=== PATIENT | male | born 1980 | race Caucasian/White ===

== ENCOUNTER → 2017-08-30 | Outpatient (CLI) | payer OTHER ==
[2017-08-30 11:09] LABS: HEMATOCRIT 45.5 % (39.2-51.8); HEMOGLOBIN 15.3 g/dL (13.7-18.0); WHITE BLOOD COUNT 6.3 x10^3/uL (3.4-10)
[2017-08-30 11:20] LABS: BLOOD UREA NITROGEN 14 mg/dL (7-18)
[2017-08-30 11:23] LABS: ASPARTATE AMINO TRANSFERASE 11 U/L (15-37)
== END | disposition home or self-care (01) ==
LOC: RAD 10:53
PROVIDERS: ATTEND Family Medicine
DX: Z00.01 Encounter for general adult medical examination with abnormal findings (principal); N44.8 Other noninflammatory disorders of the testis; M54.2 Cervicalgia; M25.512 Pain in left shoulder; G89.29 Other chronic pain
CPT/HCPCS: 36415; 72040; 80053; 85025

== ENCOUNTER → 2017-08-31 | Outpatient (CLI) | payer OTHER | END | disposition home or self-care (01) | LOC: RAD 15:42 | PROVIDERS: ATTEND Family Medicine | DX: N44.8 Other noninflammatory disorders of the testis (principal); M54.2 Cervicalgia | CPT/HCPCS: 76870; 93975 ==

== ENCOUNTER → 2017-11-15 | Outpatient (CLI) | payer OTHER | END | disposition home or self-care (01) | LOC: LAB 16:06 | PROVIDERS: ATTEND Family Medicine | DX: Z11.59 Encounter for screening for other viral diseases (principal) | CPT/HCPCS: 36415; 86787 ==